=== PATIENT | male | born 1985 | race Hispanic/Latino ===

== ENCOUNTER 2017-07-17 19:12 | Inpatient (IN) | payer MEDICAID ==
[~2017-07-17] VITALS: Ht 172.7 cm; Wt 96.6 kg
[~2017-07-17 19:12] MED LIST: DILANTIN100 MG ORAL; DILANTIN30 MG ORAL; KEPPRA500 MG ORAL
--- NOTE | 2017-07-17 19:31 | Emergency Room Report ---
History of Present Illness General Chief Complaint: Seizure Source: Patient Present Illness HPI 32-year-old male, history of seizures for many years, on Keppra and Dilantin, presenting with seizure. Patient states that he had a seizure last night, witnessed by family member, lasted for 1 minute, did not come to the emergency room. Patient proceeded to have another seizure today, lasted less than 1 minute, generalized tonic-clonic witnessed by his family member, but is left side of his tongue. Patient states that he feels very weak today. Denies any fever chills nausea vomiting diarrhea. No chest pain or shortness of breath. Patient states he saw his neurologist about 2 weeks ago and everything was fine. There is no adjustments in his medications and he has been compliant with his medications. Patient states that his last seizure prior to yesterday was about a month ago and he was hospitalized at [facility] Allergies: Coded Allergies: NO KNOWN ALLERGIES (Unverified Allergy, Unknown, 07/17/17) Patient History Past Medical History: see triage record Past Surgical History: none Pertinent Family History: none Reviewed Nursing Documentation: PMH: Agreed, PSxH: Agreed Nursing Documentation-PMH Hx Seizures: Yes Review of Systems All Other Systems: negative except mentioned in HPI Physical Exam Vital Signs Date Time Temp Pulse Resp B/P (MAP) Pulse Ox O2 Delivery O2 Flow Rate FiO2 07/17/17 19:11 98.4 102 25 125/69 96 Room Air Sp02 EP Interpretation: reviewed, normal General Appearance: alert, GCS 15, non-toxic, mild distress Head: normocephalic, atraumatic Eyes: bilateral eye normal inspection, bilateral eye PERRL, bilateral eye EOMI ENT: normal pharynx, normal voice, moist mucus membranes, other - +tongue abrasion L side Neck: normal inspection, full range of motion, supple Respiratory: normal inspection, lungs clear, normal breath sounds, no respiratory distress, no retraction, no wheezing, speaking full sentences, chest symmetrical Cardiovascular #1: normal inspection, regular rate, rhythm, no edema, normal capillary refill Cardiovascular #2: 2+ radial (R), 2+ radial (L) Gastrointestinal: normal inspection, non tender, soft, non-distended, no guarding Genitourinary: no CVA tenderness Musculoskeletal: normal inspection, back normal, normal range of motion, non- tender Neurologic: normal inspection, alert, oriented x3, responsive, embedded systems software developer III-XII nml as tested, motor strength/tone normal, sensory intact, speech normal Psychiatric: normal inspection, judgement/insight normal, memory normal Skin: normal inspection, normal color, no rash, warm/dry, well hydrated, normal turgor Medical Decision Making Diagnostic Impression: Primary Impression: Seizure disorder Additional Impression: Generalized weakness ER Course 32-year-old male, history of seizures with p/w seizure DDX: Primary seizure, triggered by infection UTI/PNA vs. dehydration vs. medication non compliance Electrolyte disturbance: hypoglycemia vs. hyponatremia vs. hypocalcemia vs. hypomagnesemia Cardiac: Arrythmia/acs Intracranial pathology: intracranial bleed, stroke Will not perform head CT at this time, likely primary seizure, patient has no evidence of trauma, and is neurologically intact Plan: BGM EKG, UCG Labs, seizure medication levels, tox labs Consider CT Ativan PRN / anti seizure meds ER course: Accu-Chek is 97 No further seizures in ED Has been stable during ED stay. AOx4, no neurological signs or symptoms However continues to feel very weak, fluids given Requires admission to telemetry as patient has generalized weakness, and is his second seizure in 24 hours phenytoin low - IV given Disposition: Patient will be admitted to telemetry Discussed with hospitalist Dr Padgett who has accepted pt for admission Please note that this Emergency Department Report was dictated using [employer] pump operator technology software, occasionally this can lead to erroneous entry secondary to interpretation by the dictation equipment. EKG Diagnostic Results EP Interpretation: Yes Rate: normal Rhythm: NSR ST Segments: No acute changes ASA given to patient: No Rhythm Strip EP Interpretation: Yes Rate: 91 Rhythm: NSR, no PVCs, no ectopy Laboratory Tests Test 07/17/17 19:30 07/17/17 19:35 White Blood Count 7.8 K/UL (4.8-10.8) Red Blood Count 4.81 M/UL (4.70-6.10) Hemoglobin 14.8 G/DL (14.2-18.0) Hematocrit 44.1 % (42.0-52.0) Mean Corpuscular Volume 92 FL (80-99) Mean Corpuscular Hemoglobin 30.7 PG (27.0-31.0) Mean Corpuscular Hemoglobin Concent 33.5 G/DL (32.0-36.0) Red Cell Distribution Width 11.6 % (11.6-14.8) Platelet Count 202 K/UL (150-450) Mean Platelet Volume 7.2 FL (6.5-10.1) Neutrophils (%) (Auto) 56.8 % (45.0-75.0) Lymphocytes (%) (Auto) 32.2 % (20.0-45.0) Monocytes (%) (Auto) 6.6 % (1.0-10.0) Eosinophils (%) (Auto) 2.8 % (0.0-3.0) Basophils (%) (Auto) 1.5 % (0.0-2.0) Sodium Level 138 MMOL/L (136-145) Potassium Level 3.8 MMOL/L (3.5-5.1) Chloride Level 101 MMOL/L (98-107) Carbon Dioxide Level 25 MMOL/L (21-32) Anion Gap 12 mmol/L (5-15) Blood Urea Nitrogen 13 mg/dL (7-18) Creatinine 1.0 MG/DL (0.55-1.30) Estimate Glomerular Filtration Rate > 60 mL/min (>60) Glucose Level 106 MG/DL (74-106) Calcium Level 9.1 MG/DL (8.5-10.1) Total Bilirubin 0.2 MG/DL (0.2-1.0) Aspartate Amino Transferase (AST) 26 U/L (15-37) Alanine Aminotransferase (ALT) 46 U/L (12-78) Alkaline Phosphatase 72 U/L (46-116) Total Protein 8.2 G/DL (6.4-8.2) Albumin 4.1 G/DL (3.4-5.0) Globulin 4.1 g/dL Albumin/Globulin Ratio 1.0 (1.0-2.7) Phenytoin (Dilantin) Level 4.3 ug/mL (10-20) L Serum Alcohol < 3 mg/dL Urine Color Pale yellow Urine Appearance Clear Urine pH 7 (4.5-8.0) Urine Specific [place] 1.010 (1.005-1.035) Urine Protein 1+ (NEGATIVE) H Urine Glucose (UA) Negative (NEGATIVE) Urine Ketones Negative (NEGATIVE) Urine Occult Blood Negative (NEGATIVE) Urine Nitrite Negative (NEGATIVE) Urine Bilirubin Negative (NEGATIVE) Urine Urobilinogen Normal MG/DL (0.0-1.0) Urine Leukocyte Esterase Negative (NEGATIVE) Urine RBC 0-2 /HPF (0 - 0) H Urine WBC 0-2 /HPF (0 - 0) Urine Squamous Epithelial Cells None /LPF (NONE/OCC) Urine Bacteria Occasional /HPF (NONE) Last Vital Signs Date Time Temp Pulse Resp B/P (MAP) Pulse Ox O2 Delivery O2 Flow Rate FiO2 07/17/17 19:11 98.4 102 25 125/69 96 Room Air Disposition: ADMITTED INPATIENT Condition: Serious Favian Styles M.D. Jul 17, 2017 19:31
[2017-07-17 19:35] VITALS: BP 125/69
[2017-07-17 19:55] LABS: BASOPHILS % (AUTO) 1.5 % (0.0-2.0); EOSINOPHILS % (AUTO) 2.8 % (0.0-3.0); LYMPHOCYTES % (AUTO) 32.2 % (20.0-45.0); MEAN CORPUSCULAR HEMOGLOBIN 30.7 PG (27.0-31.0); MEAN CORPUSCULAR HGB CONC 33.5 G/DL (32.0-36.0); MEAN CORPUSCULAR VOLUME 92 FL (80-99); MEAN PLATELET VOLUME 7.2 FL (6.5-10.1); MONOCYTES % (AUTO) 6.6 % (1.0-10.0); NEUTROPHILS % (AUTO) 56.8 % (45.0-75.0); PLATELET COUNT 202 K/UL (150-450); RED BLOOD COUNT 4.81 M/UL (4.70-6.10); RED CELL DISTRIBUTION WIDTH 11.6 % (11.6-14.8); WHITE BLOOD COUNT 7.8 K/UL (4.8-10.8)
[2017-07-17 19:58] LABS: APPEARANCE,URINE CLEAR; KETONES,URINE NEGATIVE (NEGATIVE); LEUKOCYTE ESTERASE ,URINE NEGATIVE (NEGATIVE); NITRITE,URINE NEGATIVE (NEGATIVE); PH,URINE 7 (4.5-8.0); PROTEIN,URINE 1+ (NEGATIVE); UROBILINOGEN,URINE NORMAL MG/DL (0.0-1.0)
[2017-07-17 20:08] LABS: BACTERIA,URINE OCCASIONAL /HPF; RBC,URINE 0-2 /HPF (0 - 0); WBC,URINE 0-2 /HPF (0 - 0)
[2017-07-17 20:12] LABS: ANION GAP 12 mmol/L (5-15); CALCIUM 9.1 MG/DL (8.5-10.1); CARBON DIOXIDE 25 MMOL/L (21-32); CHLORIDE 101 MMOL/L (98-107); GLOMERULAR FILTRATION RATE > 60 mL/min (>60); POTASSIUM 3.8 MMOL/L (3.5-5.1); SODIUM 138 MMOL/L (136-145)
[2017-07-17 20:17] LABS: ALANINE AMINOTRANSFERASE 46 U/L (12-78); ASPARTATE AMINO TRANSFERASE 26 U/L (15-37); TOTAL PROTEIN 8.2 G/DL (6.4-8.2)
[2017-07-17 20:21] LABS: ALCOHOL < 3 mg/dL
[2017-07-17] MEDS ORDERED: Phenytoin 1,000 MG in NS 275 ML IVPB ONE (20:30)
[2017-07-17] MEDS ORDERED: Phenytoin 250mg/5ml vial ONE (20:33)
[2017-07-17 20:40] VITALS: BP 123/55
[2017-07-17 21:40] VITALS: BP 113/67
[2017-07-17 22:00] VITALS: BP 121/67
[2017-07-18] MEDS ORDERED: Zolpidem 5mg tab ORAL PRN (00:15)
[2017-07-18] MEDS ORDERED: LORazepam Inj 2mg/ml 1ml IV PRN (00:15)
[2017-07-18 04:46] VITALS: BP 120/60
[2017-07-18] MEDS: Phenytoin 100mg cap ORAL SCH ×2 (06:12→13:57)
[2017-07-18 07:59] VITALS: BP 119/53
[2017-07-18 08:28] LABS: BASOPHILS % (AUTO) 0.9 % (0.0-2.0); EOSINOPHILS % (AUTO) 1.8 % (0.0-3.0); LYMPHOCYTES % (AUTO) 27.5 % (20.0-45.0); MEAN CORPUSCULAR HEMOGLOBIN 31.6 PG (27.0-31.0); MEAN CORPUSCULAR HGB CONC 34.5 G/DL (32.0-36.0); MEAN CORPUSCULAR VOLUME 92 FL (80-99); MEAN PLATELET VOLUME 7.6 FL (6.5-10.1); MONOCYTES % (AUTO) 6.8 % (1.0-10.0); PLATELET COUNT 188 K/UL (150-450); RED BLOOD COUNT 4.55 M/UL (4.70-6.10); RED CELL DISTRIBUTION WIDTH 11.7 % (11.6-14.8); WHITE BLOOD COUNT 7.6 K/UL (4.8-10.8)
[2017-07-18 08:45] LABS: ALANINE AMINOTRANSFERASE 39 U/L (12-78); ALBUMIN/GLOBULIN RATIO 0.9 (1.0-2.7); ANION GAP 8 mmol/L (5-15); ASPARTATE AMINO TRANSFERASE 26 U/L (15-37); CALCIUM 8.8 MG/DL (8.5-10.1); CARBON DIOXIDE 28 MMOL/L (21-32); CHLORIDE 102 MMOL/L (98-107); CREATININE 0.9 MG/DL (0.55-1.30); GLOMERULAR FILTRATION RATE > 60 mL/min (>60); POTASSIUM 3.9 MMOL/L (3.5-5.1); SODIUM 138 MMOL/L (136-145); TOTAL PROTEIN 7.4 G/DL (6.4-8.2)
[2017-07-18 11:27] VITALS: BP 104/60
[2017-07-18 16:11] VITALS: BP 116/70
--- NOTE | 2017-07-18 17:02 | History & Physical ---
History and Physical History & Physicial 32 year-old male, history of seizures for many years, on Keppra and Dilantin, presenting with seizure. Patient states that he had a seizure and presented to the ER. Patient now stable and seizure free. Denies any fever chills nausea vomiting diarrhea. No chest pain or shortness of breath. Patient states he saw his neurologist about 2 weeks ago and was told everything was fine. There is no adjustments in his medications and he has been compliant with his medications. History of recent hospitalization for same at [facility] Allergies: NO KNOWN ALLERGIES (Unverified Allergy, Unknown, 07/17/17) Patient History Past Medical History: seizures Past Surgical History: none Pertinent Family History: none Reviewed Nursing Documentation: otherwise negative physical exam WDWN NAD clear breath sounds bilaterally without rhonchi or wheeze [id number] without MRG NABS nontender no HSM no CCE nonfocal Laboratory Tests Test 07/17/17 19:30 07/17/17 19:35 07/18/17 08:00 White Blood Count 7.8 K/UL (4.8-10.8) 7.6 K/UL (4.8-10.8) Red Blood Count 4.81 M/UL (4.70-6.10) 4.55 M/UL (4.70-6.10) L Hemoglobin 14.8 G/DL (14.2-18.0) 14.3 G/DL (14.2-18.0) Hematocrit 44.1 % (42.0-52.0) 41.6 % (42.0-52.0) L Mean Corpuscular Volume 92 FL (80-99) 92 FL (80-99) Mean Corpuscular Hemoglobin 30.7 PG (27.0-31.0) 31.6 PG (27.0-31.0) H Mean Corpuscular Hemoglobin Concent 33.5 G/DL (32.0-36.0) 34.5 G/DL (32.0-36.0) Red Cell Distribution Width 11.6 % (11.6-14.8) 11.7 % (11.6-14.8) Platelet Count 202 K/UL (150-450) 188 K/UL (150-450) Mean Platelet Volume 7.2 FL (6.5-10.1) 7.6 FL (6.5-10.1) Neutrophils (%) (Auto) 56.8 % (45.0-75.0) 63.0 % (45.0-75.0) Lymphocytes (%) (Auto) 32.2 % (20.0-45.0) 27.5 % (20.0-45.0) Monocytes (%) (Auto) 6.6 % (1.0-10.0) 6.8 % (1.0-10.0) Eosinophils (%) (Auto) 2.8 % (0.0-3.0) 1.8 % (0.0-3.0) Basophils (%) (Auto) 1.5 % (0.0-2.0) 0.9 % (0.0-2.0) Sodium Level 138 MMOL/L (136-145) 138 MMOL/L (136-145) Potassium Level 3.8 MMOL/L (3.5-5.1) 3.9 MMOL/L (3.5-5.1) Chloride Level 101 MMOL/L (98-107) 102 MMOL/L (98-107) Carbon Dioxide Level 25 MMOL/L (21-32) 28 MMOL/L (21-32) Anion Gap 12 mmol/L (5-15) 8 mmol/L (5-15) Blood Urea Nitrogen 13 mg/dL (7-18) 9 mg/dL (7-18) Creatinine 1.0 MG/DL (0.55-1.30) 0.9 MG/DL (0.55-1.30) Estimat Glomerular Filtration Rate > 60 mL/min (>60) > 60 mL/min (>60) Glucose Level 106 MG/DL (74-106) 120 MG/DL (74-106) H Calcium Level 9.1 MG/DL (8.5-10.1) 8.8 MG/DL (8.5-10.1) Total Bilirubin 0.2 MG/DL (0.2-1.0) 0.4 MG/DL (0.2-1.0) Aspartate Amino Transf (AST/SGOT) 26 U/L (15-37) 26 U/L (15-37) Alanine Aminotransferase (ALT/SGPT) 46 U/L (12-78) 39 U/L (12-78) Alkaline Phosphatase 72 U/L (46-116) 62 U/L (46-116) Total Protein 8.2 G/DL (6.4-8.2) 7.4 G/DL (6.4-8.2) Albumin 4.1 G/DL (3.4-5.0) 3.6 G/DL (3.4-5.0) Globulin 4.1 g/dL 3.8 g/dL Albumin/Globulin Ratio 1.0 (1.0-2.7) 0.9 (1.0-2.7) L Phenytoin (Dilantin) Level 4.3 ug/mL (10-20) L Serum Alcohol < 3 mg/dL Urine Color Pale yellow Urine Appearance Clear Urine pH 7 (4.5-8.0) Urine Specific [place] 1.010 (1.005-1.035) Urine Protein 1+ (NEGATIVE) H Urine Glucose (UA) Negative (NEGATIVE) Urine Ketones Negative (NEGATIVE) Urine Occult Blood Negative (NEGATIVE) Urine Nitrite Negative (NEGATIVE) Urine Bilirubin Negative (NEGATIVE) Urine Urobilinogen Normal MG/DL (0.0-1.0) Urine Leukocyte Esterase Negative (NEGATIVE) Urine RBC 0-2 /HPF (0 - 0) H Urine WBC 0-2 /HPF (0 - 0) Urine Squamous Epithelial Cells None /LPF (NONE/OCC) Urine Bacteria Occasional /HPF (NONE) IMPRESSION SEIZURE PLAN Resume meds follow up with PMD this week for repeat levels patient was loaded with dilantin further adjustments pending outpatient follow up patient safe for discharge recommend neuro follow up for further adjustments DO BEASLEY Jul 18, 2017 17:02
--- NOTE | 2017-07-18 18:36 | Cardiology Report ---
APPROVED REPORT EKG Measurement Heart [id number] Normal sinus rhythm Incomplete right bundle branch block Borderline ECG
--- NOTE | 2017-07-20 13:56 | Discharge Summary ---
Discharge Summary Hospital Course Date of Admission Jul 17, 2017 at 20:58 Date of Discharge Jul 18, 2017 at 18:45 Admitting Diagnosis seizure HPI Caleb Corona is a 32 year old male who was admitted on Jul 17, 2017 at 20: 58 for Seizure Hospital Course dc summary #[id number] Discharge Medications Continued Medications: Levetiracetam (Keppra) 500 Mg Tab 1500 MG ORAL DAILY, #50 TAB 0 Refills Phenytoin Sodium Extended* (Dilantin*) 100 Mg Capsule 100 MG ORAL THREE TIMES A DAY, #90 CAP 0 Refills Discharge Condition Upon Discharge: stable Discharge Disposition Patient was discharged to Home () Discharge Diagnoses: Discharge Instructions Discharge Instructions Special Instructions I have been assigned to complete a D/C Summary on this account. I was not involved in the patient management Hanna Pino NP (Vanchtein) Jul 20, 2017 13:56
--- NOTE | 2017-07-21 01:45 | Discharge Summary ---
DATE OF ADMISSION: 07/17/2017 DATE OF DISCHARGE: 07/18/2017 REASON FOR ADMISSION: 32-year-old male with a history of seizure disorder for many years, on Keppra and Dilantin, presented with seizure activity. The patient reported having seizure the night prior to presentation to ED, which was witnessed by a family member, lasted for 1 minute, but the patient choose not come to the emergency room. However, the patient proceeded to have another seizure in the morning, lasted less than 1 minute, generalized tonic-clonic type as described, also witnessed by family member. The patient bit the left side of his tongue. This time patient was brought in for evaluation. The patient reported feeling very weak. He denied fever, chills, nausea, vomiting, or diarrhea. No chest pain. No shortness of breath. The patient followed up with his own neurologist and last time seen the neurologist about two weeks ago. There was no adjustment in his antiepileptic medications. Patient reported being compliant with medication regimen. Last seizure was about a month ago when he was hospitalized at [facility]. Upon evaluation, vital signs were stable. Pulse oximetry was stable on room air. CT of the head was not performed. The patient had no evidence of trauma and was neurologically intact. Dilantin level was low. The patient was loaded with intravenous Dilantin. Intravenous fluids were given due to the generalized weakness. Laboratory workup was unremarkable. EKG revealed normal sinus rhythm. No acute ischemic changes. No premature ventricular contraction. No ectopy. The patient was admitted with a seizure disorder and generalized weakness. HOSPITAL COURSE: The patient was admitted. The patient was on seizure precautions and as clsoely observed. Antiepileptic regimen from home with Keppra and Dilantin was resumed after loading dose of Dilantin in ER. The patient was safe for discharge and follow up with his primary medical doctor and neurologist next week for repeated Dilantin level. Due to the rapid and unexpected improvement in the patient's condition, the patient was discharged in one day. FINAL DIAGNOSES: 1. Seizure disorder. 2. Generalized weakness. DISCHARGE MEDICATIONS: See medication reconciliation list. DISCHARGE INSTRUCTIONS: The patient was discharged home. FOLLOWUP: Follow up with the primary medical doctor and neurologist next week. The patient was discharged on Keppra and Dilantin. Stevie Padgett M.D. I have been assigned to dictate discharge summary on this account and I was not involved in the patient's management. Hanna Pino ([place]anchtein) N.PKal DR: EPHRAIM JOB#: [id number] CC: JEANNINE
== END 2017-07-18 18:45 | disposition home or self-care (01) | DRG 53 ==
LOC: EDBD 19:12 → EMR 19:30 → 2E 20:58 → EDBEDREQ 21:19
DX: G40.909 Epilepsy, unspecified, not intractable, without status epilepticus (principal); R53.1 Weakness
CPT/HCPCS: 36415; 80053; 80185; 80299; 80329; 81003; 82962; 85025; 93005; 99285; J1165